=== PATIENT | female | born 1990 | race Caucasian/White ===

== ENCOUNTER 2021-06-07 10:50 | Outpatient (CLI) | payer OTHER ==
[2021-06-07 12:47] LABS: #Eosinphils 0.3 10x3/uL (0.0-0.5); #Monocytes 0.7 10x3/uL (0.0-1.1); #Neutrophils 4.3 10x3/uL (1.5-8.4); %Basophils 0.6 % (0.0-2.0); %Eosinophils 4.5 % (0.0-6.0); %Lymphocytes 14.6 % (18.0-47.0); %Monocytes 10.5 % (0.0-10.0); Hemoglobin 11.9 g/dL (12.0-15.5); Mean Corpuscular HGB CONC 30.7 g/dL (32.0-36.0); Mean Corpuscular Hemoglobin 25.1 pg (27.0-33.0); Mean Corpuscular Volume 81.5 fl (81.6-98.3); Mean Platelet Volume 9.1 fl (7.4-10.4); Platelet Count 290 10x3/uL (150-450); RBC Distribution Width 13.3 % (11.5-14.5); Red Blood Cell (RBC) Count 4.75 10x6/uL (3.90-5.03); White Blood Cell (WBC) Count 6.2 10x3/uL (3.5-10.5)
[2021-06-07 13:03] LABS: BHCG - Serum Negative (NEGATIVE); Pregs Control Background? CLEAR/WHITE (CLR/WHITE); Pregs Control Bar Appear? YES (CONTROL BAR)
[2021-06-07 13:09] LABS: Anion Gap 13 mmol/L (10-20); BUN (Urea Nitrogen) 10 mg/dL (7.0-18.7); Calc. Creatinine Clearance 0 mL/min (70-130); Carbon Dioxide 23 mmol/L (22-29); Chloride 107 mmol/L (98-107); Glucose 87 mg/dL (70-105); Sodium 139 mmol/L (136-145)
[2021-06-07 22:26] LABS: SARS-CoV-2 PCR by NAA Not Detected (NotDetected)
== END 2021-06-07 10:51 | disposition home or self-care (01) ==
LOC: LABBT 10:50
PROVIDERS: ATTEND Specialist
DX: Z01.812 Encounter for preprocedural laboratory examination (principal); Z20.822 Contact with and (suspected) exposure to COVID-19
CPT/HCPCS: 80048; 84703; 85025; U0003; U0005

== ENCOUNTER 2021-06-09 07:13 | Day surgery (SDC) | payer MEDICAID ==
[2021-06-03 11:28] VITALS: BMI 49.1
[2021-06-09] MEDS ORDERED: Gabapentin 300 MG CAP ONE (07:25)
[2021-06-09] MEDS ORDERED: Acetaminophen 500 MG TAB ONE (07:25)
[2021-06-09] MEDS ORDERED: Ketorolac Tromethamine 30 MG/ML VIAL ONE (07:25)
[2021-06-09] MEDS ORDERED: ceFAZolin 2 GM/DEX 5% 100 ML BAG ONE (07:26)
[2021-06-09] MEDS ORDERED: Bupivacaine PF 0.5% 30 ML VIAL ONE (09:24)
[2021-06-09] MEDS ORDERED: EPINEPHrine 1 MG/ML AMP ONE (09:24)
[2021-06-09] MEDS ORDERED: Famotidine/PF 20 mg/2ml Vial ONE (10:28)
[2021-06-09] MEDS ORDERED: Fentanyl 100 MCG/2 ML VIAL ONE ×3 (10:28→13:23)
[2021-06-09] MEDS ORDERED: Midazolam HCl 2 mg/2 ml Vial ONE (11:27)
[2021-06-09] MEDS ORDERED: Dexamethasone 20 MG/5 ML VIAL ONE (11:41)
[2021-06-09] MEDS ORDERED: Rocuronium Bromide 10 MG/ML (10ML VIAL) ONE (11:41)
[2021-06-09] MEDS ORDERED: PROPOFOL 200 MG/20 ML VIAL ONE (11:41)
[2021-06-09] MEDS ORDERED: Glycopyrrolate 0.2 MG/ML 5 ML SYRINGE ONE (11:41)
[2021-06-09] MEDS ORDERED: Lidocaine 1% PF 5 ML VIAL ONE (11:41)
[2021-06-09] MEDS ORDERED: Ondansetron PF 4 MG/2 ML Vial ONE ×2 (11:41→13:23)
[2021-06-09] MEDS ORDERED: Dexmedetomidine 200 MCG/2 ML VIAL ONE (11:50)
[2021-06-09] MEDS ORDERED: HYDROcodone/Acetaminophen 5/325 mg Tablet ONE (14:53)
== END 2021-06-09 17:20 | disposition home or self-care (01) ==
LOC: SDC 07:13
PROVIDERS: ATTEND Specialist
PROC: 0WUF4JZ Supplement Abdominal Wall with Synthetic Substitute, Percutaneous Endoscopic Approach (ICD-10-PCS; principal; 2021-06-09)
DX: K42.0 Umbilical hernia with obstruction, without gangrene (principal); J45.909 Unspecified asthma, uncomplicated; E66.01 Morbid (severe) obesity due to excess calories; Z68.42 Body mass index [BMI] 45.0-49.9, adult; Z79.899 Other long term (current) drug therapy; Z88.2 Allergy status to sulfonamides; Z91.040 Latex allergy status
CPT/HCPCS: C1781; J0171; J1100; J1885; J2250; J2405; J2704; J3010; S0020; S0028

== ENCOUNTER 2021-10-21 09:17 | Outpatient (CLI) | payer OTHER | END 2021-10-21 09:18 | disposition home or self-care (01) | LOC: DTY/OP 09:17 | PROVIDERS: ATTEND Specialist | DX: E66.01 Morbid (severe) obesity due to excess calories (principal) | CPT/HCPCS: 97802 ==

== ENCOUNTER 2021-11-19 10:40 | Outpatient (CLI) | payer OTHER | END 2021-11-19 10:41 | disposition home or self-care (01) | LOC: DTY/OP 10:40 | PROVIDERS: ATTEND Specialist | DX: E66.01 Morbid (severe) obesity due to excess calories (principal) | CPT/HCPCS: 97802 ==

== ENCOUNTER 2021-12-20 08:50 | Outpatient (CLI) | payer OTHER | END 2021-12-20 08:51 | disposition home or self-care (01) | LOC: DTY/OP 08:50 | PROVIDERS: ATTEND Specialist | DX: E66.01 Morbid (severe) obesity due to excess calories (principal) | CPT/HCPCS: 97802 ==